=== PATIENT | female | born 1990 | race Caucasian/White ===

== ENCOUNTER 2024-11-17 19:14 | Emergency (ER) | payer MEDICAID, SELFPAY ==
--- NOTE | 2024-11-17 | ECG_ITS ---
Test Reason : SEIZURE Blood Pressure : */* mmHG Vent. Rate : 83 BPM Atrial Rate : 83 BPM P-R Int : 156 ms QRS Dur : 88 ms QT Int : 380 ms P-R-T Axes : 50 9 17 degrees QTcB Int : 446 ms Normal sinus rhythm with sinus arrhythmia Minimal voltage criteria for LVH, may be normal variant ( R in aVL ) Borderline ECG No previous ECGs available Referred By: Generic ED Physician Electronically Signed By: WESTLEY NATARAJAN
[2024-11-17 19:22] VITALS: BP 113/78; BP 124/78; PULSE 89; PULSE 95; RESP 14; TEMP 36.9; O2SAT 96; BMI 30.9
--- NOTE | 2024-11-17 19:43 | PC.NURSE ---
pt yu with hx of seizures, mainly brought on by stress, takes keppra twice daily, reports compliance with medication. Today she had an argument with her boyfriend, she started to feel dizzy and like a seizure was coming on, she was able to verbalize this to her boyfriend, he was able to lower her down to the ground, no head strike, the seizure lasted 5-7 minutes, 4 minute post ictal per EMS, pt now A&O x4. denies pain.
[2024-11-17 19:51] LABS: MANUAL DIFF FLAG NO
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
--- OUTSIDE RECORDS SUMMARY | 2024-11-17 19:56 | XMS_ITS | Encounter Summary ---
Author Organization [employer] Address [address] [facility] 7[address] [place] [address] Care Team Providers Care Specimen Processor Name Role Phone Ghazala Bone MD Primary Care Provider [phone] Julianne Lockett Unavailable Unavailable Inactive/Transferred Primary Care Provider Unava ilable Reason for Visit * Reason Comments Med Change Request Encounter Details Date Type Department Care Team (Late st Contact Info) Description 11/28/2022 Refill [facility] [address] [place] [address] Ghazala Bone MD [address] [place] [address] Muscle spasm of back Social History Tobacco Use Types Packs/Day Years Used Date Smoking Tobacco: Never Comments Unknown Sex and Gender Information Value Date Recorded Sex Assigned at Female 12/20/2021 4:31 PM EDT Legal Sex Female 8:39 PM EDT Gender Identity Female 03/27/2022 12:36 PM EST Sexual Orientation Straight 03/27/2022 12 :36 PM EST documented as of this encounter Miscellaneous Notes * Telephone Encounter - Maddie Holloway - 11/28/2022 2:34 PM EDT Rx queued for provider to review and send. documented in this encounter Plan of Treatment Upcoming Encounters Date Type Department Care Team (Late st Contact Info) Description 11/27/2024 12:20 PM EDT Office Visit [facility] [address] [place] [address] Ghazala Bone MD [address] [place] [address] documented as of this encounter Visit Diagnoses Diagnosis Muscle spasm of back documented in this encounter Care Teams Specimen Processor Relationship Specialty Start Date End Date Ghazala Bone MD [address] [place] [address] PCP - General Family Medicine 03/12/22 07/09/23 Inactive/Transferred PCP - General 07/10/23 07/10/23 Julianne Lockett Radio Frequency Design Engineer 04/30/22 documented as of this encounter
--- OUTSIDE RECORDS SUMMARY | 2024-11-17 19:56 | XMS_ITS | Encounter Summary ---
Author Organization [employer] Address [address] [facility] [address] [place] [address] Care Team Providers Care Electric Appliance Installer Name Role Phone Julianne Lockett Unavailable Unavailable Reason for Visit * Reason Comments Med Change Request Encounter Details Date Type Department Care Team (Late st Contact Info) Description 02/22/2024 Refill [facility] [address] [place] [address] Ghazala Bone MD [address] [place] [address] Primary insomnia Social History Tobacco Use Types Packs/Day Years Used Date Smoking Tobacco: Never Comments Unknown Sex and Gender Information Value Date Recorded Sex Assigned at Female 12/20/2021 4:31 PM EDT Legal Sex Female 8:39 PM EDT Gender Identity Female 03/27/2022 12:36 PM EST Sexual Orientation Straight 03/27/2022 12 :36 PM EST documented as of this encounter Miscellaneous Notes * Telephone Encounter - Snow Colón [place] - 02/24/2024 9:53 AM EST Disp: 30 tablet Refills: 11 Start: 02/22/2024 Class: Normal Non-formulary For: Primary insomnia Last ordered: 3 weeks ago (01/31/2024) by Ghazala Bone MD Last refill: 02/20/2024 Too early, pt has refills documented in this encounter Plan of Treatment Upcoming Encounters Date Type Department Care Team (Late st Contact Info) Description 11/27/2024 12:20 PM EDT Office Visit [place] [facility] [address] [place] [address] Ghazala Bone MD [address] [place] [address] documented as of this encounter Visit Diagnoses Diagnosis Primary insomnia Persistent disorder of initiating or maintaining sleep documented in this encounter Care Teams Electric Appliance Installer Relationship Specialty Start Date End Date Julianne Lockett Freight Elevator Erector 04/30/22 documented as of this encounter
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
[2024-11-17 19:57] LABS: Hematocrit 33.2 % (37.0-47.0); Hemoglobin 10.5 g/dl (12.0-16.0); Imm Gran Abs Auto 0.03 X10*3/uL (0.00-0.03); Imm Gran Pct Auto 0.3 % (0.0-0.4); Lymphocytes Absolute Auto 1.8 X10*3/uL (1.2-4.9); Mean Corpuscular HGB Conc 31.6 g/dl (31.0-35.0); Mean Corpuscular Hemoglobin 28.0 pg (27.0-33.0); Mean Corpuscular Volume 88.5 fL (80.0-98.0); NRBC Abs Auto 0.000 X10*3/uL (0.0-0.012); NRBC Pct Auto 0.0 /100WBC (0.0-0.2); Platelet Count 331 X10*3/uL (160-400); Red Blood Count 3.75 X10*6/uL (4.20-5.50); White Blood Count 8.8 X10*3/uL (4.8-10.8)
--- OUTSIDE RECORDS SUMMARY | 2024-11-17 19:57 | XMS_ITS | Patient Health Record ---
Author Organization [facility] Address [address] [place] [address] Care Team Providers Care Head Filter Press Tender Name Role Phone Jessica Ascencio Primary Care Provider Sunny Cox [phone] Reason For Referral No Information Medications Medication SIG (Take, Route, Fr equency, Duration) Notes Start Date End Date Status Ibuprofen 200 MG 1 tablet as needed O rally every 6 hrs Active PROzac 20 MG 1 capsule in the mor bakari Orally Once a day Active Motrin IB 200 MG 1 tablet as needed O rally every 6 hrs Active Trileptal 150 MG Orally Act dylon Bentyl 20 MG 1 tablet Orally Four times a day Active Naprosyn 500 MG 1 tablet as needed O rally every 12 hrs Active Zofran 4 MG 2 tablets Orally Once a day Active Keppra 500 MG 1 tablet Orally every 12 hrs Active Problems Problem Type SNOMED Code ICD Code Onset Dates Problem Status W/U Status Risk Notes Problem Information temporarily unavailable Irritable bowel syndrome (564.1) Active confirmed Problem Information temporarily unavailable Constipation (564.00) Active confirmed Problem Information temporarily unavailable Abdominal pain, RLQ (789.03) Active confirmed Plan Of Treatment No Information Insurance Providers Payer Name Payer Address Payer Phone Subscriber Number Group Number Insured Name Patient Relationship to Insured Coverage Start Date Coverage End Date [facility] [address] [address] [place], [place] [id number] POLLY ROBISON Self - patient is the insured Medical (General) History Medical History History ICD Code Denies [place],DM,CVA,Lung disease,renal dise ase Seizure disorder Depression/anxiety Surgical History Surgery Date(Month/Year) CCY 2013 Kidney stones Uterine fibroid
--- NOTE | 2024-11-17 20:02 | ED.SEIZURE ---
HPI - Seizure General Chief Complaint: Seizure Stated Complaint: seizure Time Seen by Provider: 11/17/24 19:52 History of Present Illness ED Provider: Jm Henriquez MD HPI Narrative: 34-year-old female with history of seizure disorder no other medications medical issues. Takes Keppra took the morning dose has not missed any doses recently. There was some daily drinking she tells me it is about 3-4 nips no withdrawal seizures in the past. Last drinks this afternoon or yesterday. Does not feel ill no nausea vomiting no fever recently. Boyfriend at the bedside witnessed the single convulsive episode just prior to arrival at home the patient lowered herself to the ground and began to convulse diffusely no focal convulsion described. Sounds proximally 1 minute episode follow up by a described postictal period and returned to full consciousness and baseline Seizure History: Yes Place: Outdoors Related Data Allergies Allergy/AdvReac Type Severity Reaction Status Date / Time No Known Allergies (No Known Allergy Verified 11/17/24 19:26 Allergies*) [facility] Social History Social History Smoked in Last 30 Days: Yes Use of substances other than those prescribed or required for medical reasons: No Advance Directives: No Advance Directives Information Provided: No Patient : No Physical Exam Exam: Exam: GENERAL: Well appearing. No apparent distress. Alert. HEAD/NECK: Normal to inspection. Neck supple. No cervical lymphadenopathy. EYES: Normal to inspection. Sclera non-icteric. ENMT: External nose normal. RESPIRATORY: Respiratory effort normal. Lungs clear to auscultation bilaterally. CARDIOVASCULAR: Regular rate. Normal rhythm. No murmur. No rubs. GI: Soft, non-tender, non-distended. No rebound or guarding. No masses palpable. No hepatosplenomegaly. SKIN: No jaundice. NEUROLOGICAL: Alert. PSYCHIATRIC: Alert. Appearance appropriate for situation. Attitude cooperative. OTHER: Comprehensive Neuro exam: Face symmetric, tongue midline, strong symmetric eye closure, pupils symmetric and reactive to light, intact sensation to the face throughout, intact strong face deviation and shoulder shrug. Sensation intact to light touch throughout 5 out of 5 strength in bilateral upper extremities, 5 and 5 strength in lower extremities Vital Signs: Vital Signs: Last Vital Signs Temp 98.4 F 11/17/24 20:30 Pulse 70 11/17/24 20:30 Resp 14 11/17/24 20:30 BP 114/74 11/17/24 20:30 Pulse Ox 99 11/17/24 20:30 O2 Del Method Room Air 11/17/24 20:30 BMI result Body Mass Index 30.9 Medications Administered Discontinued Medications Generic Name Dose Route Start Last Admin Trade Name Hoda PRN Reason Stop Dose Admin Levetiracetam 750 mg 11/17/24 20:01 11/17/24 20:18 Levetiracetam 250 Mg Tablet PO 11/17/24 20:02 750 mg ONCE ONE Administration Medical Decision Making Medical Decision Making MDM Narrative: Medical Decision Makin-year-old female epilepsy on Keppra describes being adherent. Described uncomplicated nonfocal breakthrough seizure today. We will send a [facility] level for outpatient neurology follow up guidance. Basic electrolytes. She looks well she is afebrile. She does have several obvious provoking possible contributors to the breakthrough seizure including alcohol use though no clinical evidence of withdrawal syndrome as well as lack of sleep due to the current living situation where she is living in friend's home where they have young children and keep her up all night she also has a young that she is feeding caring for and getting poor sleep. Preliminary Favored Differential Diagnosis: Breakthrough seizure, electrolyte derangement, medication nonadherence less likely, among additional considered etiologies Testing Interpreted Independently: ?See below for details Radiology or Lab testing Results Reviewed: ?See below for details Consults: ?See below for details Independent Historians/External Chart Reviews: ?See below for details Social Determinants of Health Impacting MDM/Planning: ?See below for details Lab Data 11/17/24 19:45 11/17/24 19:45 Labs: Lab Results 11/17/24 11/17/24 Range/Units 19:45 20:16 WBC 8.8 (4.8-10.8) X10*3/uL RBC 3.75 L (4.20-5.50) X10*6/uL Hgb 10.5 L (12.0-16.0) g/dl Hct 33.2 L (37.0-47.0) % MCV 88.5 (80.0-98.0) fL MCH 28.0 (27.0-33.0) pg MCHC 31.6 (31.0-35.0) g/dl RDW 14.1 (11.0-16.0) % Plt Count 331 (160-400) X10*3/uL MPV 10.3 (9.4-12.3) fL Immature Gran % (Auto) 0.3 (0.0-0.4) % Neut % (Auto) 70.4 (45-73) % Lymph % (Auto) 20.5 (20-40) % [facility] % (Auto) 6.7 (2-11) % Eos % (Auto) 1.4 (0-4) % Baso % (Auto) 0.7 (0-2) % Lymph # (Auto) 1.8 (1.2-4.9) X10*3/uL [facility] # (Auto) 0.6 (0.1-1.2) X10*3/uL Eos # (Auto) 0.1 (0.0-0.4) X10*3/uL Baso # (Auto) 0.1 (0.0-0.2) X10*3/uL Abs Immat Gran (auto) 0.03 (0.00-0.03) X10*3/uL Absolute Neuts (auto) 6.2 (2.0-8.3) x10*3/uL Absolute Nucleated RBC 0.000 (0.0-0.012) X10*3/uL Nucleated RBC % (auto) 0.0 (0.0-0.2) /100WBC Sodium 146 H (135-145) mmol/L Potassium 3.5 (3.3-5.1) mmol/L Chloride 110 H (96-108) mmol/L Carbon Dioxide 28 (22-29) mmol/L Anion Gap 12 (12-20) BUN 10 (9-16) mg/dL Creatinine 0.73 (0.5-1.4) mg/dL Estim Creat Clear Calc 95.0 Estimated GFR > 60 Random Glucose 106 (60-115) mg/dL Calcium 9.0 (8.4-10.2) mg/dL Total Bilirubin 0.2 (0.0-1.0) mg/dL AST 27 (5-31) U/L ALT 33 H (0-31) U/L Alkaline Phosphatase 112 (39-117) U/L Total Protein 6.7 (6.5-8.0) g/dL Albumin 4.1 (3.5-5.0) g/dL Ethyl Alcohol < 10 mg/dL Discharge Plan Discharge Clinical Impression: Epileptic seizure Patient Disposition: Home, Self-Care Instructions: Epilepsy (ED) Additional Instructions: Please call your neurologist and continue taking your medication as prescribed. Try your best to keep a calm environment and get as much sleep as you can, stay hydrated. We strongly advise you not drink any alcohol as this can impede seizure control. Your blood tests sodium level was slightly high this will need to be repeated in 1 week. Referrals: [facility] Neuro/Sleep [Provider Group, Neurology] Referral Note: Call the office for an appointment to discuss breakthrough seizures Interventions: ED Discharge Assessment Last Done: 11/17/24 20:30 Discharge Date/Time: 11/17/24 20:41 Print Language: Lithuanian
[2024-11-17 20:05] LABS: Alanine Aminotransferase 33 U/L (0-31); Albumin Level 4.1 g/dL (3.5-5.0); Alkaline Phosphatase 112 U/L (39-117); Anion Gap 12 (12-20); Aspartate Amino Transferase 27 U/L (5-31); Blood Urea Nitrogen 10 mg/dL (9-16); Calcium 9.0 mg/dL (8.4-10.2); Carbon Dioxide 28 mmol/L (22-29); Chloride 110 mmol/L (96-108); Creatinine Clr Calc Pharmacy 95.0; Estimated Glomerular Filt Rate > 60; Potassium 3.5 mmol/L (3.3-5.1); Sodium 146 mmol/L (135-145); Total Protein 6.7 g/dL (6.5-8.0)
--- NOTE | 2024-11-17 20:21 | PC.NURSE ---
pt medicated per APRGuillermo gonzalez at bedside. pt alert and oriented x4.
[2024-11-17 20:30] VITALS: BP 114/74; PULSE 70; RESP 14; TEMP 36.9; O2SAT 99
[2024-11-21 23:29] LABS: Levetiracetam Keppra 8.0 mcg/mL (6.0-46.0)
== END 2024-11-17 20:41 | disposition home or self-care (01) ==
PROVIDERS: Emergency Provider Emergency Medicine; PCP Family Medicine
DX: G40.909 Epilepsy, unspecified, not intractable, without status epilepticus (principal); Z79.899 Other long term (current) drug therapy
CPT/HCPCS: 36415; 80053; 80177; 80307; 85025; 93005; 99283; 99284

== ENCOUNTER → 2024-11-17 19:34 | Outpatient (BNV) | payer MEDICAID, SELFPAY | PROVIDERS: Emergency Provider Emergency Medicine; PCP Family Medicine; Visit Provider Internal Medicine | DX: R56.9 Unspecified convulsions (principal) | CPT/HCPCS: 93010 ==

== ENCOUNTER 2024-11-24 11:10 | Outpatient (REF) | payer MEDICAID, SELFPAY ==
--- OUTSIDE RECORDS SUMMARY | 2024-11-23 10:30 | XMS_ITS | Encounter Summary ---
Author Organization [employer] Address [address] [place] [address] Care Team Providers Care Hairspring Inspector Name Role Phone Julianne Lockett Unavailable Unavailable Brianna Silva Primary Care Provider [phone] Encounter Details Date Type Department Care Team ([facility] Contact Info) Description 11/23/2024 10:30 AM EDT Office Visit [facility] [address] [place], [place] [phone] Brianna Silva FNP [address] [place] [address] At risk for sexually transmitted disease due to unprotected sex (Primary Dx); Well adult exam Social History Tobacco Use Types Packs/Day Years Used Date Smoking Tobacco: Never Passive Smoke Exposure: Never Alcohol Use Standard Drinks/Week Comments Never 0 (1 standard drink = 0.6 oz pur e alcohol) Depression Answer Date Recorded Patient Health Questionnaire-9 Score 5 11/23/2024 Patient Health Questionnaire-9 Score 5 11/23/2024 Last PHQ-9: Questionnaire Data Not on file 1 Housing Stability Answer Date Recorded What is your housing situation today? I have sameer white 11/23/[address] you li ve. Do you have problems with any of the following? None of the above 11/23/2024 Food Insecurity Answer Date Recorded Within the past 12 months, y ou worried that your food would run out before you got money to buy more: Never True 11/23/2024 Within the past 12 months,th e food you bought just didn't last and you didn't have enough money to get more: Never True 07/2024 Transportation Answer Date Recorded In the past 12 months, has l ack of transportation kept you from medical appts, meetings, work or from getting things needed for daily living? No 11/23/2024 Utilities Answer Date Recorded In the past 12 months, has t he electric, gas, oil or water company threatened to shut off services in your home? No 11/23/2024 Depression Answer Date Recorded Patient Health Questionnaire-2 Score 0 11/23/2024 Internet Access Answer Date Recorded Internet Access Q1 No 11/23/2024 Internet Access Q2 I do not want or need it 07/2024 Comments No Sex and Gender Information Value Date Recorded Sex Assigned at Female 12/20/2021 4:31 PM EDT Legal Sex Female 8:39 PM EDT Gender Identity Female 03/27/2022 12:36 PM EST Sexual Orientation Straight 03/27/2022 12 :36 PM EST documented as of this encounter Last Filed Vital Signs Vital Sign Reading Time Taken Comments Blood Pressure 126/89 11/23/2024 10:34 AM EDT Pulse 89 11/23/2024 10:34 AM EDT Temperature 36.1 C (97 F) 11/23/2024 10:34 AM EDT Respiratory Rate 16 11/23/2024 10:34 AM EDT Oxygen Saturation 98% 11/23/2024 10:34 AM EDT Inhaled Oxygen Concentration - - Weight 69.4 kg (153 lb) 11/23/2024 10:34 AM EDT Height 149.9 cm (4' 11 ) 11/23/2024 10:34 AM EDT Body Mass Index 30.9 11/23/2024 10:34 AM EDT documented in this encounter Functional Status * Over the past 2 weeks, how often have you been bothered by any of the following problems? Question Answer Date of Assessment Author Patient Health Questionnaire -2 Score 0 11/23/2024 10:36 AM EDT Jeanette Sheppard MA * Little interest or pleasure in doing things Answer Date of Assessment Author Not at all 11/23/2024 10:36 AM EDT Jeanette Sheppard MA * Feeling down, depressed, or hopeless Answer Date of Assessment Author Not at all 11/23/2024 10:36 AM EDT Jeanette Sheppard MA * Trouble falling or staying asleep, or sleeping too much Answer Date of Assessment Author Several days 11/23/2024 10:36 AM Jeanette Richardson MA * Feeling tired or having little energy Answer Date of Assessment Author Several days 11/23/2024 10:36 AM Jeanette Richardson MA * Poor appetite or overeating Answer Date of Assessment Author Several days 11/23/2024 10:36 AM Jeanette Richardson MA * Feeling bad about yourself - or that you are a failure or have let yourself or your family down Answer Date of Assessment Author Several days 11/23/2024 10:36 AM Jeanette Richardson MA * Trouble concentrating on things, such as reading the newspaper or watching television Answer Date of Assessment Author Several days 11/23/2024 10:36 AM Jeanette Richardson MA * Moving or speaking so slowly that other people could have noticed? Or the opposite - being so fidgety or restless that you have been moving around a lot more than usual. Answer Date of Assessment Author Not at all 11/23/2024 10:36 AM Jeanette Richardson MA * Thoughts that you would be better off or hurting yourself in some way Answer Date of Assessment Author Not at all 11/23/2024 10:36 AM Jeanette Richardson MA * Patient Health Questionnaire-9 Score Answer Date of Assessment Author 5 11/23/2024 10:36 AM Jeanette Richardson MA * How difficult have these problems made it for you to do your work, take care of things at home, or get along with other people? Answer Date of Assessment Author Somewhat difficult 11/23/2024 10:36 AM Jeanette Tristan MA * Over the last 2 weeks, how often have you been bothered by any of the following problems? Question Answer Date of Assessment Author Feeling nervous, anxious, or on edge 1 11/23/2024 10:35 AM Jeanette Richardson MA Not being able to stop or co ntrol worrying 1 11/23/2024 10:35 AM EDT Jeanette Sheppard MA Worrying too much about diff erent things 1 11/23/2024 10:35 AM EDT Jeanette Sheppard MA Trouble relaxing 1 11/23/2024 10:35 AM EDT Jeanette Sheppard MA Being so restless that it is hard to sit still 1 11/23/2024 10:35 AM EDT Jeanette Sheppard MA Becoming easily annoyed or irritable 1 11/23/2024 10:35 AM EDT Jeanette Sheppard MA Feeling afraid as if somethi ng awful might happen 1 11/23/2024 10:35 AM EDT Jeanette Sheppard MA WERNER-7 Total Score 7 11/23/2024 10:35 AM EDT Jeanette Sheppard MA documented as of this encounter Plan of Treatment Upcoming Encounters Date Type Department Care Team (Late st Contact Info) Description 11/27/2024 12:20 PM EDT Office Visit [facility] [address] [place] [address] Ghazlaa Bone MD [address] [place] [address] 12/09/2024 9:15 AM EDT Procedure Visit [facility] [address] [place] [address] Scheduled Orders Name Type Priority Associated Diagnoses Orde r Schedule Hepatitis C Antibody with Reflex to HCV, RNA, Quantitative, Real-Time PCR Lab Routine At risk for sexually transmitted disease due to unprotected sex Expected: 11/23/2024, Expires: 11/23/2025 HIV-1/2 Antigen and Antibodies, Fourth Generation, with Reflexes Lab Routine At risk for sexually transmitted disease due to unprotected sex Expected: 11/23/2024 (Approximate), Expires: 11/23/2025 Hepatitis B Core Antibody, Total Lab Routine At risk for sexually transmitted disease due to unprotected sex Expected: 11/23/2024 (Approximate), Expires: 11/23/2025 Hepatitis B Surface Antibody, Qualitative Lab Routine At risk for sexually transmitted disease due to unprotected sex Expected: 11/23/2024 (Approximate), Expires: 11/23/2025 Hepatitis B surface antigen, EIA Lab Routine At risk for sexually transmitted disease due to unprotected sex Expected: 11/23/2024 (Approximate), Expires: 11/23/2025 Chlamydia/N. Gonorrhoeae, PCR, Urine Lab Routine At risk for sexually transmitted disease due to unprotected sex Ordered: 11/23/2024 Syphilis Screen Lab Routine At risk for sexually transmitted disease due to unprotected sex Expected: 11/23/2024, Expires: 11/23/2025 TSH W/Reflex to FT4 Lab Routine Well adult exam Expected: 11/23/2024 (Approximate), Expires: 11/23/2025 Lipid Panel, Standard Lab Routine Well adult exam Expected: 11/23/2024 (Approximate), Expires: 11/23/2025 Comprehensive Metabolic Panel Lab Routine Well adult exam Expected: 11/23/2024 (Approximate), Expires: 11/23/2025 Hemoglobin A1c Lab Routine Well adult exam Expected: 11/23/2024 (Approximate), Expires: 11/23/2025 documented as of this encounter Procedures Procedure Name Priority Date/Time Associated Diagnosis Comments CBC WITH AUTO DIFFERENTIAL Routine 11/24/2024 11:15 AM EDT Well adult exam documented in this encounter Results * (ABNORMAL) CBC auto differential (11/24/2024 11:15 AM EDT) White Blood Count 5.4 4.8 - 10.8 X10*3/uL LABS Red Blood Count 4.06(L) 4.20 - 5.50 X10*6/uL LABS Hemoglobin 11.4(L) 12.0 - 16.0 g/dl LABS Hematocrit 35.6(L) 37.0 - 47.0 % LABS Mean Corpuscular Volume 87.7 80.0 - 98.0 fL LABS Mean Corpuscular Hemoglobin 28.1 27.0 - 33.0 pg LABS Mean Corpuscular HGB Conc 32.0 31.0 - 35.0 g/dl LABS Red Cell Distribution Width 14.5 11.0 - 16.0 % LABS Platelet Count 372 160 - 400 X10*3/uL LABS Mean Platelet Volume 10.9 9.4 - 12.3 fL LABS Neutrophils Percent Auto 61.4 45 - 73 % LABS Imm Gran Pct Auto 0.2 0.0 - 0.4 % LABS Lymphocytes Percent Auto 24.5 20 - 40 % LABS Monocytes Percent Auto 11.7(H) 2 - 11 % LABS Eosinophils Percent Auto 1.5 0 - 4 % LABS Basophils Percent Auto 0.7 0 - 2 % LABS NRBC Pct Auto 0.0 0.0 - 0.2 /100WBC LABS Neutrophils Absolute Auto 3.3 2.0 - 8.3 x10*3/uL LABS Imm Gran Abs Auto 0.01 0.00 - 0.03 X10*3/uL LABS Lymphocytes Absolute Auto 1.3 1.2 - 4.9 X10*3/uL LABS Monocytes Absolute Auto 0.6 0.1 - 1.2 X10*3/uL LABS Eosinophils Absolute Auto 0.1 0.0 - 0.4 X10*3/uL LABS Basophils Absolute Auto 0.0 0.0 - 0.2 X10*3/uL LABS NRBC Abs Auto 0.000 0.0 - 0.012 X10*3/uL LABS Blood Venous blood specimen / Unknown 11/24/2024 11:15 AM EDT 11/24/2024 1:30 PM EDT us Brianna Silva SENIOR NET WEB DEVELOPER LAB BLOOD ORDERABLES Final Res ult LABS [address] [place] [address] [phone] documented in this encounter Visit Diagnoses Diagnosis At risk for sexually transmitted disease due to unprotected sex- Primary Well adult exam Routine general medical examination at a health care facility documented in this encounter Additional Health Concerns Assessment Noted Time PHQ-9 Depression Total Score: 5 11/24/19 25 10:36 AM EDT documented as of this encounter Care Teams Hairspring Inspector Relationship Specialty Start Date End Date Brianna Silva FNP [address] [place] [id number] PCP - General Family Medicine 11/23/24 Julianne Lockett Plate Glass Installer 04/30/22 documented as of this encounter
[2024-11-24 13:35] LABS: MANUAL DIFF FLAG NO
[2024-11-24 13:50] LABS: Hematocrit 35.6 % (37.0-47.0); Hemoglobin 11.4 g/dl (12.0-16.0); Imm Gran Abs Auto 0.01 X10*3/uL (0.00-0.03); Imm Gran Pct Auto 0.2 % (0.0-0.4); Lymphocytes Absolute Auto 1.3 X10*3/uL (1.2-4.9); Mean Corpuscular HGB Conc 32.0 g/dl (31.0-35.0); Mean Corpuscular Hemoglobin 28.1 pg (27.0-33.0); Mean Corpuscular Volume 87.7 fL (80.0-98.0); NRBC Abs Auto 0.000 X10*3/uL (0.0-0.012); NRBC Pct Auto 0.0 /100WBC (0.0-0.2); Platelet Count 372 X10*3/uL (160-400); Red Blood Count 4.06 X10*6/uL (4.20-5.50); White Blood Count 5.4 X10*3/uL (4.8-10.8)
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
--- OUTSIDE RECORDS SUMMARY | 2024-11-24 13:55 | XMS_ITS | Encounter Summary ---
Author Organization [employer] Address [address] [facility] [address] [place] [address] Care Team Providers Care Machine Operator Hop Worker Name Role Phone Julianne Lockett Unavailable Unavailable Brianna Silva Primary Care Provider [phone] Reason for Visit * Reason Comments Med Change Request Encounter Details Date Type Department Care Team ([facility] st Contact Info) Description 02/22/2024 Refill [facility] [address] [place] [address] Ghazala Bone MD [address] [place] [address] Primary insomnia Social History Tobacco Use Types [...] Description 11/27/2024 12:20 PM EDT Office Visit [place] [facility] [address] [place] [address] Ghazala Bone MD [address] [place] [address] 12/09/2024 9:15 AM EDT Procedure Visit [facility] [address] [place] [address] documented as of this encounter Visit Diagnoses Diagnosis Primary insomnia Persistent disorder of initiating or maintaining sleep documented in this encounter Care Teams Machine Operator Hop Worker Relationship Specialty Start Date End Date Brianna Silva FNP [address] [place] [address] PCP - General Family Medicine 11/23/24 Julianne Lockett Yeast Culture Developer 04/30/22 documented as of this encounter
--- OUTSIDE RECORDS SUMMARY | 2024-11-24 13:55 | XMS_ITS | Encounter Summary ---
Author Organization [employer] Address [address] [facility] 7t [place] [address] Care Team Providers Care It Specialist Name Role Phone Ghazala Bone MD Primary Care Provider [phone] Julianne Lockett Unavailable Unavailable Inactive/Transferred Primary Care Provider Brianna Amezquita SLITTING AND SHIPPING SUPERVISOR Primary Care Provider [phone] Reason for Visit * Reason Comments Med Change Request Encounter Details Date Type Department Care Team (Late Contact Info) Description 11/28/2022 Refill L[facility] [address] [place] [address] Ghazala Bone MD [address] [place] [address] Muscle spasm of back Social History Tobacco [...] 11/27/2024 12:20 PM EDT Office Visit L[facility] [address] [facility] [place] [address] Ghazala Bone MD [address] [place] [address] 12/09/2024 9:15 AM EDT Procedure Visit [facility] [address] [place] [address] documented as of this encounter Visit Diagnoses Diagnosis Muscle spasm of back documented in this encounter Care Teams It Specialist Relationship Specialty Start Date End Date Ghazala Bone MD [address] [place] [address] PCP - General Family Medicine 03/12/22 07/09/23 Inactive/Transferred PCP - General 07/10/23 07/10/23 Brianna Silva FNP [address] [place] [address] PCP - General Family Medicine 11/23/24 Julianne Lockett Developmental Specialist 04/30/22 documented as of this encounter
--- OUTSIDE RECORDS SUMMARY | 2024-11-24 13:56 | XMS_ITS | Patient Health Record ---
Author Organization [facility] Address [address] [place] [address] Care Team Providers Care Crop Nutrition Scientist Name Role Phone Silva Jessica Primary Care Provider Sunny Cox [phone] Reason For Referral No Information Medications Medication [...] Problem Status W/U Status Risk Notes Problem Irritable bowel syndrome (74292977) Irritable bowel syndrome (564.1) Active confirmed Problem Constipation (47374053) Constipation (564.00) Active confirmed Problem Right lower quadrant pain (942536132) Abdominal pain, RLQ (789.03) Active confirmed Plan Of Treatment No Information Insurance Providers Payer Name Payer Address Payer Phone Subscriber Number Group Number Insured Name Patient Relationship to Insured Coverage Start Date Coverage End Date [facility] [address] [address] [place], [place] [id number] POLLY ROBISON Self - patient is the insured Medical (General) History Medical History History ICD Code Denies [place],DM,CVA,Lung disease,renal dise ase Seizure disorder Depression/anxiety Surgical History Surgery Date(Month/Year) [facility]Y 2012 Kidney stones Uterine fibroid
--- OUTSIDE RECORDS SUMMARY | 2024-11-24 13:56 | XMS_ITS | Encounter Summary ---
Author Organization [employer] Address [address] [place] [address] Care Team Providers Care Crm System Administrator Name Role Phone Julianne Lockett Unavailable Unavailable Brianna Silva Primary Care Provider [phone] Encounter Details Date Type Department Care Team (Latest Contact Info) Description 11/23/2024 Travel Social History Tobacco Use Types Packs/Day Years [...] PM EST documented as of this encounter Functional Status * Over the past 2 weeks, how often have you been bothered by any of the following problems? Question Answer Date of Assessment Author Patient Health Questionnaire -2 Score 0 11/23/2024 10:36 AM Jeanette Richardson MA * Little interest or pleasure in doing things Answer Date of Assessment Author Not at all 11/23/2024 10:36 AM Jeanette Richardson MA * Feeling down, depressed, or hopeless Answer Date of Assessment Author Not at all 11/23/2024 10:36 AM Jeanette Richardson MA * Trouble falling or staying asleep, [...] co ntrol worrying 1 11/23/2024 10:35 AM Jeanette Richardson MA Worrying too much about diff erent things 1 11/23/2024 10:35 AM Jeanette Richardson MA Trouble relaxing 1 11/23/2024 10:35 AM Jeanette Richardson MA Being so restless that it is hard to sit still 1 11/23/2024 10:35 AM Jeanette Richardson MA Becoming easily annoyed or irritable 1 11/23/2024 10:35 AM Jeanette Richardson MA Feeling afraid as if somethi ng awful might happen 1 11/23/2024 10:35 AM Jeanette Richardson MA WERNER-7 Total Score 7 11/23/2024 10:35 AM Jeanette Richardson MA documented as of this encounter Plan of Treatment Upcoming Encounters Date Type Department Care Team (Late st Contact Info) Description 11/27/2024 12:20 PM EDT Office Visit [facility] [address] [place] [address] Ghazala Bone MD [address] [place] [address] 12/09/2024 9:15 AM EDT Procedure Visit [facility] [address] [place] [address] documented as of this encounter Visit Diagnoses Not on filedocumented in this encounter Additional Health Concerns Assessment Noted Time PHQ-9 Depression Total Score: 5 11/24/19 25 10:36 AM EDT documented as of this encounter Care Teams Crm System Administrator Relationship Specialty Start Date End Date Brianna Silva FNP [address] [place] [address] PCP - General Family Medicine 11/23/24 Julianne Lockett Water Purification Chemist 04/30/22 documented as of this encounter
--- OUTSIDE RECORDS SUMMARY | 2024-11-24 13:56 | XMS_ITS | Encounter Summary ---
Author Organization [employer] Address [address] [place] [address] Care Team Providers Care Burr Mill Operator Name Role Phone Julianne Lockett Unavailable Unavailable Encounter Details Date Type Department Care Team (Latest Contact Info) Description 11/20/2024 Travel Social History Tobacco Use Types Packs/Day [...] 11/27/2024 12:20 PM EDT Office Visit [facility] [address] [place] [address] Ghazala Bone MD [address] [place] [address] 12/09/2024 9:15 AM EDT Procedure Visit [facility] [address] [place] [address] documented as of this encounter Visit Diagnoses Not on filedocumented in this encounter Care Teams Burr Mill Operator Relationship Specialty Start Date End Date Julianne Lockett Road Freight Brake Coupler 04/30/22 documented as of this encounter
--- OUTSIDE RECORDS SUMMARY | 2024-11-24 13:56 | XMS_ITS | Encounter Summary ---
Author Organization [employer] Address [address] [place] [address] Care Team Providers Care Document Examiner Name Role Phone Julianne Lockett Unavailable Unavailable Brianna Silva Primary Care Provider [phone] Reason for Visit * Reason Onset Date Comments Med Refill 11/24/2024 Encounter Details Date Type Department Care Team (Late st Contact Info) Description 11/24/2024 Refill [facility] [address] [place] [address] Ghazala Bone MD [address] [place] [address] Allergy to shellfish Social History Tobacco Use Types Packs/Day Years [...] is your housing situation today? I have sameerdante white 11/23/[address] you [...] Description 11/27/2024 12:20 PM EDT Office Visit [place] [facility] [address] [place] [address] Ghazala Bone MD [address] [place] [address] 12/09/2024 9:15 AM EDT Procedure Visit [facility] [address] [place] [address] documented as of this encounter Visit Diagnoses Diagnosis Allergy to shellfish Allergy to seafood documented in this encounter Additional Health Concerns Assessment Noted Time PHQ-9 Depression Total Score: 5 11/24/19 10:36 AM EDT documented as of this encounter Care Teams Document Examiner Relationship Specialty Start Date End Date Brianna Silva FNP [address] [place] [address] PCP - General Family Medicine 11/23/24 Julianne Lockett Medical Lab Director 04/30/22 documented as of this encounter
[2024-11-24 14:18] LABS: Alanine Aminotransferase 48 U/L (0-31); Albumin Level 4.4 g/dL (3.5-5.0); Alkaline Phosphatase 115 U/L (39-117); Anion Gap 13 (12-20); Aspartate Amino Transferase 44 U/L (5-31); Blood Urea Nitrogen 7 mg/dL (9-16); Calcium 9.2 mg/dL (8.4-10.2); Carbon Dioxide 26 mmol/L (22-29); Chloride 108 mmol/L (96-108); Cholesterol 184 mg/dL (<200); Estimated Glomerular Filt Rate > 60; HDL Cholesterol 50 mg/dL (>40); Potassium 3.5 mmol/L (3.3-5.1); Sodium 143 mmol/L (135-145); Total Protein 7.6 g/dL (6.5-8.0); Triglycerides 106 mg/dL (<150)
[2024-11-24 15:15] LABS: CT PCR Urine NOT DETECTED (Not Detect.); NG PCR Urine NOT DETECTED (Not Detect.)
[2024-11-25 07:58] LABS: Syphilis Screen Nonreactive (Nonreactive)
[2024-11-25 08:26] LABS: HBS Num1 118.57 mIU/mL (0-7.99); HBc Num1 0.04 S/CO (0.00-0.79); HBsAGNum1 1.09 S/CO (0.00-0.99); HIV Num 1 0.06 S/CO (0.00-0.99); ~HepC Num1 0.05 S/CO (0.00-0.79); ~Hepatitis B Surface Antibody REACTIVE (Nonreactive); ~Hepatitis C Antibody Nonreactive (Nonreactive)
[2024-11-25 09:13] LABS: HBsAGNum2 Reactive; HBsAGNum3 Nonreactive; Hepatitis B Surface Antigen Retest CNFM (Negative)
== END 2024-11-24 11:11 | disposition home or self-care (01) ==
LOC: HO.HHCL 11:10
PROVIDERS: PCP Family Medicine; Visit Provider Nurse Practitioner Family
DX: Z00.00 Encounter for general adult medical examination without abnormal findings (principal); Z11.59 Encounter for screening for other viral diseases; Z20.2 Contact with and (suspected) exposure to infections with a predominantly sexual mode of transmission; Z11.4 Encounter for screening for human immunodeficiency virus [HIV]; A64 Unspecified sexually transmitted disease
CPT/HCPCS: 80053; 80061; 83036; 84443; 85025; 86704; 86706; 86780; 86803; 87340; 87389; 87491; 87591